=== PATIENT | male | born 1985 | race Caucasian/White ===

== ENCOUNTER 2020-09-05 20:01 | Emergency (ER) | payer OTHER ==
[~2020-09-05] VITALS: Ht 182.9 cm; Wt 72.6 kg
[~2020-09-05 20:01] MED LIST: Amoxicillin500 MG PO; BENZ1 PO; LITH300C; MAGIC MOUTHWASH; OLAN10; OLAN7.5; OLAN7.5 PO; OLANZAPINE15 M1 PO; OXYACE5T PO; Peridex480 ML SS; TRAZ50 PO
== END 2020-09-05 22:26 | disposition home or self-care (01) ==
LOC: ER 20:01
DX: F30.9 Manic episode, unspecified (principal); Z79.899 Other long term (current) drug therapy
CPT/HCPCS: 99282; A9270

== ENCOUNTER 2020-09-07 01:06 | Emergency (ER) | payer OTHER ==
[~2020-09-07] VITALS: Ht 175.3 cm; Wt 63.5 kg
[2020-09-07] MEDS ORDERED: Hydroxyzine HCl50 MG PO (02:11)
[2020-09-07] MEDS ORDERED: OLAN10 PO (17:44)
== END 2020-09-07 02:31 | disposition home or self-care (01) ==
LOC: ER 01:06
DX: Z00.00 Encounter for general adult medical examination without abnormal findings (principal); F20.9 Schizophrenia, unspecified; E07.9 Disorder of thyroid, unspecified; Z59.0 Homelessness; Z79.899 Other long term (current) drug therapy
CPT/HCPCS: 99281; A9270

== ENCOUNTER 2020-09-19 20:18 | Observation (INO) | payer OTHER ==
[~2020-09-19] VITALS: Ht 182.9 cm; Wt 79.4 kg
[~2020-09-19 20:18] MED LIST changes: +Hydroxyzine HCl50 MG PO; +OLAN10 PO
[2020-09-19 23:19] LABS: BASOPHILS ABSOLUTE AUTO 0.07 K/mm3 (0.00-0.23); BASOPHILS PERCENT AUTO 1 % (0-2); EOSINOPHILS ABSOLUTE AUTO 0.24 K/mm3 (0.00-0.68); EOSINOPHILS PERCENT AUTO 2 % (0-6); Hematocrit 37.2 % (37.0-53.0); Hemoglobin 12.3 g/dL (13.5-17.5); IMMATURE GRAN ABSOLUTE AUTO 0.02 K/mm3 (0.00-0.10); IMMATURE GRAN PERCENT AUTO 0 % (0-1); LYMPHOCYTES ABSOLUTE AUTO 2.44 K/mm3 (0.84-5.20); LYMPHOCYTES PERCENT AUTO 23 % (21-46); MONOCYTES ABSOLUTE AUTO 1.02 K/mm3 (0.16-1.47); MONOCYTES PERCENT AUTO 10 % (4-13); Mean Corpuscular HGB 31.3 pg (26.0-34.0); Mean Corpuscular HGB Conc 33.1 g/dL (31.5-36.5); Mean Corpuscular Volume 95 fL (80-100); Mean Platelet Volume 8.8 fL (9.1-12.4); NEUTROPHILS ABSOLUTE AUTO 6.75 K/mm3 (1.96-9.15); NEUTROPHILS PERCENT AUTO 64 % (41-73); Platelet Count 421 K/mm3 (150-400); RDW Coefficient Variation 12.8 % (11.7-14.2); RDW Standard Deviation 45.1 fL (35.1-46.3); Red Blood Cell Count 3.93 M/mm3 (4.30-5.90); White Blood Cell Count 10.54 K/mm3 (4.00-11.30)
[2020-09-19 23:39] LABS: Source, Urine Clean Catch
[2020-09-19 23:40] LABS: Alanine Aminotransfer (ALT/SGP 52 U/L (12-78); Albumin, Blood 3.1 g/dL (3.4-5.0); Albumin/Globulin Ratio 0.8 (0.8-1.8); Alk Phos 107 U/L (50-136); Anion Gap 8 mmol/L (6-16); Aspartate Aminotrans (AST/SGOT 50 U/L (12-37); Bilirubin, Total 0.2 mg/dL (0.1-1.0); Blood Urea Nitrogen 15 mg/dL (8-24); Bun/Creatinine Ratio 17.1 (12.0-20.0); CO2, Blood 26 mmol/L (21-32); Calcium, Blood 8.5 mg/dL (8.5-10.1); Chloride, Blood 104 mmol/L (98-108); Creatinine, Blood 0.88 mg/dL (0.60-1.20); Ethanol (Alcohol), Blood, Med <3 mg/dL; Glomerular Filtration Rate >60 (60-); Glucose, Blood 125 mg/dL (70-99); Potassium, Blood 3.7 mmol/L (3.5-5.5); Salicylate <1.7 mg/dL (2.8-20.0); Sodium, Blood 138 mmol/L (136-145); Total Protein, Blood 7.1 g/dL (6.4-8.2)
[2020-09-19 23:41] LABS: Bilirubin, Urine Neg (Neg); Blood, Urine Neg (Neg); Glucose Qualitative, Urine Neg (Neg); Ketones, Urine Neg (Neg); Leukocyte Esterase, Urine Neg (Neg); Nitrite, Urine Neg (Neg); Protein, Urine Neg (Neg); Urobilinogen, Urine NORM (Normal)
[2020-09-19 23:42] LABS: Appearance, Urine Clear (Clear); Color, Urine Yellow (P-Yellow)
[2020-09-19 23:47] LABS: Acetaminophen, Random <2.0 ug/mL (10.0-30.0)
[2020-09-19 23:53] LABS: U Amphetamine Screen Not Detected; U Barbituate Screen Not Detected; U Benzodiazapine Screen Not Detected; U Buprenorphine Screen Not Detected; U Cannabinoids Screen DETECTED; U Cocaine Screen Not Detected; U Methadone Screen Not Detected; U Methamphetamine Screen Not Detected; U Opiates Screen Not Detected; U Oxycodone Screen Not Detected; U Phencyclidine Screen Not Detected; U Propoxyphene Screen Not Detected
[2020-09-20] MEDS ORDERED: OLANZAPINE PO (11:47)
[2020-09-21] MEDS ORDERED: OLAN10 PO (11:47)
== END 2020-09-21 11:58 | disposition home or self-care (01) ==
LOC: ER 20:18 → EOR 20:19
PROVIDERS: ADMIT Emergency Medicine
DX: F25.0 Schizoaffective disorder, bipolar type (principal); S01.81XA Laceration without foreign body of other part of head, initial encounter; W18.39XA Other fall on same level, initial encounter; Z91.14 Patient's other noncompliance with medication regimen; Z59.0 Homelessness; F17.210 Nicotine dependence, cigarettes, uncomplicated
CPT/HCPCS: 12002; 36415; 70450; 72125; 80053; 81003; 84443; 85025; 90471; 90714; 96372-59; 99285-25; A9270; G0378; G0480; J1630; J2060; Q3014

== ENCOUNTER 2020-09-22 15:45 | Emergency (ER) | payer OTHER ==
[~2020-09-22] VITALS: Ht 182.9 cm; Wt 75.8 kg
[~2020-09-22 15:45] MED LIST changes: +OLANZAPINE PO
== END 2020-09-22 16:25 | disposition home or self-care (01) ==
LOC: ER 15:45
DX: G44.209 Tension-type headache, unspecified, not intractable (principal); F17.200 Nicotine dependence, unspecified, uncomplicated
CPT/HCPCS: 96372; 99283-25; J1885

== ENCOUNTER 2020-09-22 21:44 | Emergency (ER) | payer OTHER | END 2020-09-22 23:06 | disposition left against medical advice (07) | LOC: ER 21:44 | DX: Z53.21 Procedure and treatment not carried out due to patient leaving prior to being seen by health care provider (principal) ==

== ENCOUNTER 2020-09-23 09:04 | Emergency (ER) | payer OTHER ==
[~2020-09-23] VITALS: Ht 180.3 cm; Wt 78.9 kg
== END 2020-09-23 09:29 | disposition home or self-care (01) ==
LOC: ER 09:04
DX: R07.89 Other chest pain (principal); F17.200 Nicotine dependence, unspecified, uncomplicated; Z79.899 Other long term (current) drug therapy
CPT/HCPCS: 99283

== ENCOUNTER 2020-09-23 23:31 | Emergency (ER) | payer OTHER ==
[~2020-09-23] VITALS: Ht 182.9 cm; Wt 78.9 kg
== END 2020-09-23 23:47 | disposition home or self-care (01) ==
LOC: ER 23:31
DX: S01.00XD Unspecified open wound of scalp, subsequent encounter (principal); Z79.899 Other long term (current) drug therapy; X58.XXXD Exposure to other specified factors, subsequent encounter
CPT/HCPCS: 99281

== ENCOUNTER 2020-10-03 19:34 | Emergency (ER) | payer OTHER ==
[~2020-10-03] VITALS: Ht 177.8 cm; Wt 65.8 kg
[2020-10-03] MEDS ORDERED: OLAN10 PO (20:04)
== END 2020-10-03 20:35 | disposition home or self-care (01) ==
LOC: ER 19:34
DX: F20.9 Schizophrenia, unspecified (principal); T69.022A Immersion foot, left foot, initial encounter; T69.021A Immersion foot, right foot, initial encounter; F17.200 Nicotine dependence, unspecified, uncomplicated; Z79.899 Other long term (current) drug therapy; X31.XXXA Exposure to excessive natural cold, initial encounter
CPT/HCPCS: 99284; A9270

== ENCOUNTER 2020-10-10 17:05 | Emergency (ER) | payer OTHER ==
[~2020-10-10] VITALS: Ht 172.7 cm; Wt 72.6 kg
[2020-10-10] MEDS ORDERED: OLAN10 PO (17:24)
== END 2020-10-10 17:25 | disposition home or self-care (01) ==
LOC: ER 17:05
DX: F25.9 Schizoaffective disorder, unspecified (principal); F17.200 Nicotine dependence, unspecified, uncomplicated
CPT/HCPCS: 99281

== ENCOUNTER 2020-11-06 00:16 | Emergency (ER) | payer OTHER ==
[~2020-11-06] VITALS: Ht 180.3 cm; Wt 78.9 kg
== END 2020-11-06 02:57 | disposition home or self-care (01) ==
LOC: ER 00:16
DX: F20.9 Schizophrenia, unspecified (principal); Z76.0 Encounter for issue of repeat prescription; Z79.899 Other long term (current) drug therapy; F17.200 Nicotine dependence, unspecified, uncomplicated
CPT/HCPCS: 99281

== ENCOUNTER 2020-12-12 22:14 | Emergency (ER) | payer SELFPAY ==
[~2020-12-12] VITALS: Ht 182.9 cm; Wt 77.1 kg
== END 2020-12-12 22:43 | disposition home or self-care (01) ==
LOC: ER 22:14
DX: F29 Unspecified psychosis not due to a substance or known physiological condition (principal); F17.200 Nicotine dependence, unspecified, uncomplicated; Z79.899 Other long term (current) drug therapy
CPT/HCPCS: 99282

== ENCOUNTER 2021-09-14 08:51 | Emergency (ER) | payer OTHER ==
[~2021-09-14] VITALS: Ht 180.3 cm; Wt 79.4 kg
[2021-09-14 09:34] LABS: Source, Urine Voided
[2021-09-14 09:39] LABS: Appearance, Urine Clear (Clear); Bilirubin, Urine Neg (Neg); Blood, Urine Neg (Neg); Color, Urine Yellow (P-Yellow); Glucose Qualitative, Urine Neg (Neg); Ketones, Urine Neg (Neg); Leukocyte Esterase, Urine Neg (Neg); Nitrite, Urine Neg (Neg); Protein, Urine Neg (Neg); Urobilinogen, Urine NORM (Normal)
[2021-09-14 11:26] LABS: BASOPHILS ABSOLUTE AUTO 0.05 K/mm3 (0.00-0.23); BASOPHILS PERCENT AUTO 1 % (0-2); EOSINOPHILS ABSOLUTE AUTO 0.14 K/mm3 (0.00-0.68); EOSINOPHILS PERCENT AUTO 1 % (0-6); Hematocrit 47.3 % (37.0-53.0); Hemoglobin 15.8 g/dL (13.5-17.5); IMMATURE GRAN ABSOLUTE AUTO 0.03 K/mm3 (0.00-0.10); IMMATURE GRAN PERCENT AUTO 0 % (0-1); LYMPHOCYTES ABSOLUTE AUTO 1.65 K/mm3 (0.84-5.20); LYMPHOCYTES PERCENT AUTO 16 % (21-46); MONOCYTES PERCENT AUTO 7 % (4-13); Mean Corpuscular HGB 29.4 pg (26.0-34.0); Mean Corpuscular HGB Conc 33.4 g/dL (31.5-36.5); Mean Corpuscular Volume 88 fL (80-100); Mean Platelet Volume 8.8 fL (9.1-12.4); NEUTROPHILS ABSOLUTE AUTO 8.05 K/mm3 (1.96-9.15); NEUTROPHILS PERCENT AUTO 76 % (41-73); Platelet Count 404 K/mm3 (150-400); RDW Coefficient Variation 13.7 % (11.7-14.2); RDW Standard Deviation 44.1 fL (35.1-46.3); Red Blood Cell Count 5.38 M/mm3 (4.30-5.90); White Blood Cell Count 10.62 K/mm3 (4.00-11.30)
[2021-09-14 11:37] LABS: Alanine Aminotransfer (ALT/SGP 35 U/L (12-78); Albumin, Blood 3.5 g/dL (3.4-5.0); Alk Phos 143 U/L (50-136); Anion Gap 5 mmol/L (6-16); Aspartate Aminotrans (AST/SGOT 21 U/L (12-37); Bilirubin, Total 0.2 mg/dL (0.1-1.0); Blood Urea Nitrogen 7 mg/dL (8-24); Bun/Creatinine Ratio 9.1 (12.0-20.0); CO2, Blood 28 mmol/L (21-32); Calcium, Blood 8.9 mg/dL (8.5-10.1); Chloride, Blood 107 mmol/L (98-108); Creatinine, Blood 0.77 mg/dL (0.60-1.20); Globulin, Blood 3.6 g/dL (2.2-4.0); Glomerular Filtration Rate >60 (60-); Glucose, Blood 129 mg/dL (70-99); Potassium, Blood 4.1 mmol/L (3.5-5.5); Sodium, Blood 140 mmol/L (136-145); Total Protein, Blood 7.1 g/dL (6.4-8.2)
== END 2021-09-14 12:12 | disposition home or self-care (01) ==
LOC: ER 08:51
PROVIDERS: Emergency Medicine; Physician Assistant
DX: R10.9 Unspecified abdominal pain (principal); Z79.899 Other long term (current) drug therapy; F17.200 Nicotine dependence, unspecified, uncomplicated
CPT/HCPCS: 36415; 80053; 81003; 85025; 99284

== ENCOUNTER 2021-09-24 12:54 | Emergency (ER) | payer OTHER ==
[~2021-09-24] VITALS: Ht 175.3 cm; Wt 74.8 kg
[~2021-09-24 12:54] MED LIST changes: +ONDA4ODT MM
== END 2021-09-24 13:10 | disposition home or self-care (01) ==
LOC: ER 12:54
DX: Z00.00 Encounter for general adult medical examination without abnormal findings (principal); F17.200 Nicotine dependence, unspecified, uncomplicated

== ENCOUNTER 2021-12-27 08:00 | Emergency (ER) | payer OTHER ==
[~2021-12-27] VITALS: Ht 180.3 cm; Wt 83.5 kg
== END 2021-12-27 08:21 | disposition home or self-care (01) ==
LOC: ER 08:00
DX: R00.2 Palpitations (principal); F17.200 Nicotine dependence, unspecified, uncomplicated; Z91.19 Patient's noncompliance with other medical treatment and regimen; Z79.899 Other long term (current) drug therapy
CPT/HCPCS: 93005; 93010; 99283-25

== ENCOUNTER 2022-06-16 10:30 | Emergency (ER) | payer OTHER ==
[~2022-06-16] VITALS: Ht 180.3 cm; Wt 81.7 kg
[2022-06-16] MEDS ORDERED: OLANZAPINE20 M1 PO (11:09)
== END 2022-06-16 11:24 | disposition home or self-care (01) ==
LOC: ER 10:30
DX: Z76.0 Encounter for issue of repeat prescription (principal); F20.9 Schizophrenia, unspecified; F17.200 Nicotine dependence, unspecified, uncomplicated
CPT/HCPCS: A9270

== ENCOUNTER 2022-07-11 14:39 | Emergency (ER) | payer OTHER ==
[~2022-07-11] VITALS: Ht 180.3 cm; Wt 81.7 kg
[~2022-07-11 14:39] MED LIST changes: +OLANZAPINE20 M1 PO
[2022-07-11] MEDS ORDERED: OLAN10 PO (15:09)
== END 2022-07-11 15:13 | disposition home or self-care (01) ==
LOC: ER 14:39
DX: Z76.0 Encounter for issue of repeat prescription (principal); F17.200 Nicotine dependence, unspecified, uncomplicated; Z79.899 Other long term (current) drug therapy
CPT/HCPCS: 99281

== ENCOUNTER 2022-08-18 17:04 | Emergency (ER) | payer OTHER ==
[~2022-08-18] VITALS: Ht 180.3 cm; Wt 79.8 kg
== END 2022-08-18 18:48 | disposition home or self-care (01) ==
LOC: ER 17:04
DX: Z76.0 Encounter for issue of repeat prescription (principal); F17.210 Nicotine dependence, cigarettes, uncomplicated; Z79.899 Other long term (current) drug therapy
CPT/HCPCS: 99281

== ENCOUNTER 2022-09-11 21:40 | Emergency (ER) | payer OTHER ==
[~2022-09-11] VITALS: Ht 177.8 cm; Wt 77.1 kg
[~2022-09-11 21:40] MED LIST changes: +OLAN20 MM
== END 2022-09-11 22:01 | disposition home or self-care (01) ==
LOC: ER 21:40
DX: L29.9 Pruritus, unspecified (principal); F20.9 Schizophrenia, unspecified; F17.210 Nicotine dependence, cigarettes, uncomplicated; Z79.899 Other long term (current) drug therapy
CPT/HCPCS: 99283

== ENCOUNTER 2022-10-29 14:59 | Emergency (ER) | payer OTHER ==
[~2022-10-29] VITALS: Ht 177.8 cm; Wt 72.6 kg
[2022-10-29] MEDS ORDERED: OLAN20 MM (16:42)
== END 2022-10-29 16:57 | disposition home or self-care (01) ==
LOC: ER 14:59
DX: Z76.0 Encounter for issue of repeat prescription (principal); F20.9 Schizophrenia, unspecified; F31.9 Bipolar disorder, unspecified; Z59.00 Homelessness unspecified; F17.210 Nicotine dependence, cigarettes, uncomplicated; Z79.899 Other long term (current) drug therapy
CPT/HCPCS: 99284

== ENCOUNTER 2023-01-04 00:17 | Emergency (ER) | payer OTHER ==
[~2023-01-04] VITALS: Ht 177.8 cm; Wt 65.8 kg
[2023-01-04 01:30] VITALS: BP 148/87
[2023-01-04] MEDS ORDERED: OLAN20 MM (01:45)
== END 2023-01-04 02:58 | disposition home or self-care (01) ==
LOC: ER 00:17
DX: Z76.0 Encounter for issue of repeat prescription (principal); F17.210 Nicotine dependence, cigarettes, uncomplicated
CPT/HCPCS: A9270

== ENCOUNTER 2024-06-26 17:36 | Emergency (ER) | payer OTHER ==
[~2024-06-26] VITALS: Ht 177.8 cm; Wt 79.8 kg
[2024-06-26] MEDS ORDERED: Haldol 5 mg Tab5 MG PO (18:27)
[2024-06-26] MEDS ORDERED: HYDHCL25 PO (18:28)
[2024-06-26] MEDS ORDERED: Lidocaine/Tetracaine/Epinephr 3 ML GEL SYRINGE TOP ONE (21:40)
[2024-06-27] MEDS ORDERED: Percocet 5-3251 EACH PO (02:01)
[2024-06-27 03:00] VITALS: BP 147/98
== END 2024-06-27 03:05 | disposition home or self-care (01) ==
LOC: ER 17:36
DX: S52.502A Unspecified fracture of the lower end of left radius, initial encounter for closed fracture (principal); S01.21XA Laceration without foreign body of nose, initial encounter; S01.112A Laceration without foreign body of left eyelid and periocular area, initial encounter; G43.909 Migraine, unspecified, not intractable, without status migrainosus; F17.200 Nicotine dependence, unspecified, uncomplicated; V29.91XA Electric (assisted) bicycle rider (driver) (passenger) injured in unspecified traffic accident, initial encounter; Y92.410 Unspecified street and highway as the place of occurrence of the external cause; Z79.899 Other long term (current) drug therapy
CPT/HCPCS: 12014; 25605; 70450; 73100; 99284-25